=== PATIENT | female | born 1955 | race Caucasian/White ===

== ENCOUNTER 2021-07-03 10:18 | Emergency (ER) | payer MEDICARE ==
[~2021-07-03] VITALS: Ht 180.3 cm; Wt 77.7 kg
[2021-07-03 10:26] VITALS: BP 129/80
--- NOTE | 2021-07-03 10:40 | NUR ---
ERP AT BS FOR EVAL
--- NOTE | 2021-07-03 10:58 | NUR ---
Patient given discharge instructions and they have confirmed that they understand the instructions. Patient ambulatory with steady gait. 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
== END 2021-07-03 11:01 | disposition home or self-care (01) ==
LOC: ED 10:55
DX: Z48.01 Encounter for change or removal of surgical wound dressing (principal)
CPT/HCPCS: 99281